=== PATIENT | male | born 1970 | race Two or more races ===

== ENCOUNTER 2021-06-03 16:10 | Inpatient (IN) | payer OTHER ==
[~2021-06-03] VITALS: Ht 172.7 cm; Wt 112.9 kg
--- NOTE | 2021-06-03 16:17 | NUR ---
ON & OFF CHEST PAIN X 2 DAYS,325 ASA AND 2 SPRAYS OF NITRO GIVEN. PT BLOOD PRESSURE IS ELEVATED, MD AWARE. PT ATTCHED TO MONITOR. DR BRADSHAW AT BEDSIDE FOR EVAL.
--- NOTE | 2021-06-03 16:20 | NUR ---
IV ESTABLISHED L UPPER ARM 20G LABS COLLECTED AND DRAWN.
[2021-06-03] MEDS ORDERED: IOHEXOL-300 100 ML VIAL IV ONE (17:05)
[2021-06-03 17:19] LABS: BASOPHILS % (AUTO) 0.3 % (0.0-2.0); EOSINOPHILS % (AUTO) 2.2 % (0.0-6.0); HEMATOCRIT 45 % (39-51); LYMPHOCYTES # (AUTO) 2.5 K/uL (0.8-4.8); LYMPHOCYTES % (AUTO) 44.6 % (20.0-44.0); MEAN CORPUSCULAR HGB CONC 34 g/dl (31.0-36.0); MEAN CORPUSCULAR VOLUME 92 fL (80-96); MONOCYTES # (AUTO) 0.5 K/uL (0.1-1.30); MONOCYTES % (AUTO) 8.1 % (2.0-12.0); NEUTROPHILS # (AUTO) 2.6 K/uL (1.8-8.9); NEUTROPHILS % (AUTO) 44.8 % (43.0-81.0); PLATELET COUNT (AUTO) 149 K/uL (150-450); RED BLOOD CELL COUNT(AUTO) 4.86 MIL/uL (4.5-6.0); WHITE BLOOD COUNT (AUTO) 5.7 K/uL (4.3-11.0)
[2021-06-03 17:43] LABS: CALCIUM, SERUM 8.7 mg/dL (8.5-10.1); CARBON DIOXIDE 28 mmol/L (21-32); CHLORIDE 100 mmol/L (98-107); GLUCOSE 98 mg/dL (74-106); POTASSIUM 4.2 mmol/L (3.5-5.1); SODIUM SERUM 134 mmol/L (136-145); UREA NITROGEN, BLOOD 15 mg/dL (7-18)
[2021-06-03] MEDS ORDERED: LISI1TAB55 PO (18:03)
--- NOTE | 2021-06-03 18:47 | NUR ---
COVID TEST COLLECTED AND SENT
--- NOTE | 2021-06-03 19:47 | NUR ---
RECEIVED CALL FROM PT SISTER JACKI [phone]
[2021-06-03] MEDS ORDERED: MAGNESIUM HYDROXIDE 30 ML UDC PO PRN (20:00)
[2021-06-03] MEDS ORDERED: Z GUARD REMEDY 4 OZ OINT TP PRN (20:00)
[2021-06-03] MEDS ORDERED: ONDANSETRON HCL/PF 4 MG/2 ML VIAL IVP PRN (20:00)
[2021-06-03] MEDS ORDERED: hydrALAZINE HCL 25 MG TABLET PO PRN (20:00)
[2021-06-03] MEDS ORDERED: ZOLPIDEM TARTRATE 5 MG TABLET PO PRN (20:00)
[2021-06-03] MEDS ORDERED: ENOXAPARIN SODIUM 40 MG/0.4 ML DISP.SYRIN SQ SCH (20:00)
[2021-06-03] MEDS ORDERED: HYDROCODONE/APAP 5/325MG TABLET PO PRN (20:00)
[2021-06-03] MEDS ORDERED: ACETAMINOPHEN 325 MG TABLET PO PRN (20:00)
[2021-06-03] MEDS ORDERED: MAG HYDROX/AL HYDROX/SIMETH 30 ML UDC PO PRN (20:00)
[2021-06-03] MEDS ORDERED: MORPHINE SULFATE INJ 2 MG/ML DISP.SYRIN IV PRN (20:00)
[2021-06-03] MEDS ORDERED: ENOXAPARIN SODIUM 40 MG/0.4 ML DISP.SYRIN SQ ONE (22:38)
--- NOTE | 2021-06-04 00:07 | NUR ---
Patient does not wish to proceed with medical care recommended by Dr. Chiu. Patient given information related to possible complications, up to and including , which could occur as a result of leaving the hospital at this time. Patient verbalizes understanding of risks involved due to leaving against medical advice. Patient has signed AMA form. IV line discontinued.
[2021-06-04 03:54] VITALS: BP 145/83
[2021-06-04] MEDS ORDERED: PANTOPRAZOLE 40 MG TABLET.DR PO SCH (07:30)
[2021-06-04] MEDS ORDERED: ASPIRIN 81 MG TAB.CHEW PO SCH (09:00)
== END 2021-06-04 00:07 | disposition left against medical advice (07) | DRG 203 ==
LOC: ER 16:19 → TRANSITION 20:19
PROVIDERS: ADMIT Student in an Organized Health Care Education/Training Program; ATTEND Student in an Organized Health Care Education/Training Program
DX: R07.9 Chest pain, unspecified (principal); K76.0 Fatty (change of) liver, not elsewhere classified; H91.90 Unspecified hearing loss, unspecified ear; Z79.899 Other long term (current) drug therapy
CPT/HCPCS: 36415; 71045-TC; 71260-TC; 80048-TC; 84484-TC; 85025-TC; 87081-TC; C9803; G0378; J1650; J2270; J2405; Q9967